=== PATIENT | female | born 1940 | race Caucasian/White ===

== ENCOUNTER 2018-08-07 15:13 | Emergency (ER) | payer MEDICARE ==
[~2018-08-07] VITALS: Ht 162.6 cm; Wt 93.6 kg
--- OUTSIDE RECORDS SUMMARY | 2018-08-07 15:16 | XMS REPORT | Clinical Summary ---
Author Author RAJEEV [employer] Organization [facility] [email or web address] [facility] Address Unknown Phone Unavailable Care Team Providers Care Filter Washer Name Role Phone Martell Mariee MD PCP Allergies Comments Active Allergy Reactions Severity Noted Date Hives Morphine Sulfate High shortness of breath Nitrofurantoin Macrocrystalline Medications End Date Status Medication Sig Dispensed Refills Start Date Active metOLazone (ZAROXOLYN) Take 2.5 mg 0 2.5 MG tabletIndications: by mouth as 7 Essential hypertension needed (Once with goal blood pressure weekly per less than 130/80 Dr. Santos) . Active levalbuterol (XOPENEX) Take 3 mLs by 0 1.25 mg/3 mL nebulizer nebulization 8 solution 3 (three) times daily as needed. 10/14/2018 Active levalbuterol (XOPENEX Inhale 2 1 Inhaler 0 HFA) 45 mcg/actuation puffs by 8 inhalerIndications: mouth via Bronchitis inhaler every 6 (six) hours as needed for Wheezing. Active nebulizers (NEBULIZER) Nebulizer and 1 each 0 MiscIndications: mask for 8 Bronchitis levalbuterol. Active losartan (COZAAR) 50 MG Take 50 mg by 0 tablet mouth nightly . 01/06/2019 Active rosuvastatin (CRESTOR) 10 Take 1 tablet 90 tablet 3 MG tablet (10 mg total) 8 by mouth nightly. Active warfarin (COUMADIN) 5 MG TAKE 1 TABLET 90 tablet 3 tabletIndications: BY MOUTH 8 Essential hypertension DAILY with goal blood pressure less than 130/80 Active levothyroxine (SYNTHROID, TAKE 1 TABLET 90 tablet 2 LEVOTHROID) 50 MCG tablet BY MOUTH 8 EVERY MORNING ON AN EMPTY STOMACH Active furosemide (LASIX) 40 MG TAKE 2 180 tablet 1 tablet TABLETS BY 8 MOUTH DAILY Active spironolactone TAKE 1 TABLET 90 tablet 1 (ALDACTONE) 25 MG BY MOUTH 8 tabletIndications: DAILY Essential hypertension with goal blood pressure less than 130/80 Active FUROSEMIDE ORAL Take 60 mg by 0 mouth every morning In addition to the 40 mg at night. . Active carvedilol (COREG) 25 MG TAKE 2 360 tablet 1 tablet TABLETS BY 8 MOUTH 2 TIMES DAILY WITH BREAKFAST AND DINNER. Active traZODone (DESYREL) 100 TAKE 1 TABLET 90 tablet 1 MG tablet BY MOUTH 8 NIGHTLY 08/19/2017 Discontinued carvedilol (COREG) 25 MG Take 2 360 tablet 3 tablet tablets (50 6 mg total) by mouth 2 (two) times daily with breakfast and dinner. 11/05/2017 Discontinued furosemide (LASIX) 40 MG Take 2 180 tablet 3 tablet tablets (80 7 mg total) by mouth daily. 11/05/2017 Discontinued levothyroxine (SYNTHROID, Take 1 tablet 90 tablet 3 LEVOTHROID) 50 MCG tablet (50 mcg 7 total) by mouth Every morning on an empty stomach. 01/27/2018 Discontinued warfarin (COUMADIN) 5 MG Take 1 tablet 90 tablet 3 tabletIndications: (5 mg total) 7 Essential hypertension by mouth with goal blood pressure daily. less than 130/80 01/27/2018 Discontinued traZODone (DESYREL) 100 Take 1 tablet 90 tablet 3 MG tabletIndications: (100 mg 7 Essential hypertension total) by with goal blood pressure mouth less than 130/80 nightly. 11/05/2017 Discontinued spironolactone Take 1 tablet 90 tablet 1 (ALDACTONE) 25 MG (25 mg total) 7 tabletIndications: by mouth Essential hypertension daily. with goal blood pressure less than 130/80 10/15/2017 Discontinued losartan (COZAAR) 100 MG Take 1 tablet 90 tablet 3 tabletIndications: (100 mg 7 Essential hypertension total) by with goal blood pressure mouth daily. less than 130/80 06/03/2018 budesonide-formoterol Inhale 2 2 Inhaler 12 (SYMBICORT) 80-4.5 puffs by 7 mcg/actuation mouth via inhalerIndications: inhaler 2 Essential hypertension (two) times with goal blood pressure daily. less than 130/80 01/27/2018 Discontinued carvedilol (COREG) 25 MG TAKE 2 360 tablet 2 tablet TABLETS BY 7 MOUTH 2 TIMES DAILY WITH BREAKFAST AND DINNER. 10/16/2017 cefuroxime (CEFTIN) 500 Take 1 tablet 0 MG tablet by mouth 2 8 (two) times daily. 10/19/2017 predniSONE (DELTASONE) 20 Take 2 10 tablet 0 MG tabletIndications: tablets (40 8 Bronchitis mg total) by mouth daily for 5 days. 04/02/2018 Discontinued levothyroxine (SYNTHROID, TAKE 1 TABLET 90 tablet 2 LEVOTHROID) 50 MCG tablet BY MOUTH 8 EVERY MORNING ON AN EMPTY STOMACH 04/02/2018 Discontinued furosemide (LASIX) 40 MG TAKE 2 180 tablet 2 tablet TABLETS BY 8 MOUTH DAILY 04/02/2018 Discontinued spironolactone TAKE 1 TABLET 90 tablet 2 (ALDACTONE) 25 MG BY MOUTH 8 tabletIndications: DAILY Essential hypertension with goal blood pressure less than 130/80 12/02/2017 cephalexin (KEFLEX) 500 Take 1 21 capsule 0 MG capsule capsule (500 8 mg total) by mouth 3 (three) times daily for 7 days. 12/05/2017 bacitracin 500 unit/gram Apply 120 g 0 ointment topically 2 8 (two) times daily for 10 days. 08/07/2018 Discontinued carvedilol (COREG) 25 MG TAKE 2 360 tablet 1 tablet TABLETS BY 8 MOUTH 2 TIMES DAILY WITH BREAKFAST AND DINNER. 08/07/2018 Discontinued traZODone (DESYREL) 100 TAKE 1 TABLET 90 tablet 1 MG tabletIndications: BY MOUTH 8 Essential hypertension NIGHTLY with goal blood pressure less than 130/80 06/19/2018 cefUROXime (CEFTIN) 250 Take 1 tablet 20 tablet 0 201 MG tablet (250 mg 8 total) by mouth 2 (two) times daily for 10 days. Active Problems Patient Care Coordination Note Aug 2014 new pleural effusion, more on the right, improved after 20 pound diuresis Kids are medical POA, some are here. 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 Home machine. Some self mgt. Daughter is General Surgeon in [place] Problem Noted Date Pure hypercholesterolemia 12/02/2017 Overview: LDL 109 Jun 2017, had been good prior to that. Agreed to start rosuvastatin December 2017 Bilateral edema of lower extremity 11/21/2016 Overview: Right heart failure, Furosemide. Dr. Santos sent to Dr. Ibarra, no procedure, did not look like would be help. She does not want lymphedema clinic. Anemia 06/13/2015 Overview: Low platelets 113, low lymphocytes, WBC 3.91, HB 10.4. Dr. Iniguez believes is following. Not low on iron. Bled during turbinate procedure on Lovenox Pancytopenia 02/15/2015 Overview: January 2015, prev anemia and mild thrombocytopenia, now with pancytopenia. Abnormal CXR 02/14/2015 Overview: Dr. Hewitt following right middle lobe opacity. Follow up pending. Venous insufficiency 12/22/2014 Overview: S/p bilateral venous sclerotherapy [place] Vein, see media. Some persistent retrograde flow Right heart failure due to pulmonary hypertension 11/15/2014 Overview: Normal EF and NST Dr. Santos 10/2014 EF 50-55%. Marked Pulm HTN< Severe tricuspid regurgitation. Proteinuria 10/27/2014 Overview: 296 Oct 2014 Pleural effusion, bilateral 08/09/2014 Overview: New moderate right pleural effusion with right retrocardiac opacity and no mediastinal shift. Slight enlargement of small left pleural effusion. No pulmonary edema or pneumothorax. Normal cardiomediastinal contours. 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 Multinodular goiter 08/09/2014 Overview: [place] Pulmonary hypertension, primary 07/27/2013 Overview: Apparent primary followed by Dr. Santos, Prev pulmonary emboli. History of pneumonia 2010 [facility] Following expectantly. Overall function is very good. Systolic murmur 07/27/2013 Overview: 2/6 YAZAN Bilateral renal cysts 09/30/2012 Essential hypertension with goal blood pressure less than 130/80 07/28/2012 Warfarin anticoagulation Overview: History of PEs, mangaged by [facility] S/P ablation of atrial fibrillation Overview: Still in a-fib 12/2012 Dr. Jesus, no chronic A-fib, Carvedilol Dr.. Santos, Pacemaker. Pacemaker Overview: Dr. Jesus Resolved Problems Problem Noted Date Resolved Date Bronchitis 02/21/2018 06/09/2018 Overview: January 2018 ([place]). Encounters Care Team Description Date Type Specialty Martell Mariee MD 08/07/2018 Refill Internal Medicine Martell Mariee MD 07/30/2018 Orders Only Internal Medicine Martell Mariee MD 07/01/2018 Orders Only Internal Martell Edwards MD Coagulation Disorder 06/24/2018 Telephone Internal Martell Edwards MD 06/24/2018 Orders Only Internal Martell Edwards MD CC (OV notes and labs sent ) 06/20/2018 Telephone Internal Martell Edwards MD 06/17/2018 Orders Only Internal Martell Edwards MD Rx 06/10/2018 Telephone Internal Medicine Martell Mariee MD 06/10/2018 Orders Only Internal Martell Edwards MD Pulmonary hypertension, primary (HCC) (Primary Dx); Need for influenza vaccination; Annual physical exam; Pure hypercholesterolemia; Right heart failure due to pulmonary hypertension (HCC); S/P ablation of atrial fibrillation; Warfarin anticoagulation; Essential hypertension with goal blood pressure less than 130/80; Multinodular goiter; Encounter for long-term (current) use of medications; Bilateral edema of lower extremity 06/09/2018 Office Visit Internal Martell Edwards MD 06/03/2018 Orders Only Internal Martell Edwards MD INR 06/03/2018 Telephone Internal Martell Edwards MD 05/27/2018 Orders Only Martell Rouse MD Coagulation Disorder 05/27/2018 Telephone Internal Martell Edwards MD 05/20/2018 Orders Only Internal Martell Edwards MD Coagulation Disorder 05/20/2018 Telephone Internal Medicine Deep Ibarra MD Leg mass, left 05/19/2018 Hospital Radiology Encounter Deep Ibarra MD Leg mass, left (Primary Dx) 05/16/2018 Outside Orders Martell Mariee MD Coagulation Disorder 05/06/2018 Telephone Internal Martell Edwards MD 05/06/2018 Orders Only Internal Medicine Martell Mariee MD 04/22/2018 Orders Only Internal Medicine Martell Mariee MD 04/15/2018 Orders Only Internal Medicine Martell Mariee MD 04/09/2018 Orders Only Internal Medicine Martell Mariee MD Essential hypertension with goal blood pressure less than 130/80 04/02/2018 Refill Internal Medicine Martell Mariee MD 04/01/2018 Orders Only Internal Medicine Martell Mariee MD Coagulation Disorder 03/25/2018 Telephone Internal Medicine Martell Mariee MD 03/25/2018 Orders Only Internal Medicine Martell Mariee MD 03/18/2018 Orders Only Internal Medicine Martell Mariee MD 03/11/2018 Orders Only Internal Medicine Martell Mariee MD Coagulation Disorder 03/11/2018 Telephone Internal Martell Edwards MD Coagulation Disorder (OUT OF range INR) 03/04/2018 Telephone Internal Martell Edwards MD 02/25/2018 Orders Only Internal Medicine Martell Mraiee MD Right heart failure due to pulmonary hypertension (HCC) (Primary Dx); Warfarin anticoagulation; Pure hypercholesterolemia; S/P ablation of atrial fibrillation; Pulmonary hypertension, primary (HCC); Venous insufficiency; Bronchitis 02/21/2018 Office Visit Internal Medicine Martell Mariee MD Results (INR results ) 02/17/2018 Telephone Internal Martell Edwards MD 02/17/2018 Orders Only Internal Martell Edwards MD 02/14/2018 Orders Only Internal Martell Edwards MD Cough; URI 02/13/2018 Telephone Internal Martell Edwards MD 02/11/2018 Orders Only Internal Medicine Martell Mariee MD Coagulation Disorder (INR) 02/11/2018 Telephone Internal Medicine Martell Mariee MD 02/04/2018 Orders Only Internal Martell Edwards MD 01/28/2018 Orders Only Internal Medicine Martell Mariee MD Essential hypertension with goal blood pressure less than 130/80 01/27/2018 Refill Internal Martell Edwards MD 01/14/2018 Orders Only Internal Medicine Martell Mariee MD 01/07/2018 Orders Only Internal Medicine Martell Mariee MD Coagulation Disorder 12/31/2017 Telephone Internal Medicine Martell Mariee MD 12/31/2017 Orders Only Internal Medicine Martell Mariee MD 12/24/2017 Orders Only Internal Medicine Martell Mariee MD records request (cardio work up 2016) 12/20/2017 Telephone Internal Medicine Martell Mariee MD 12/17/2017 Orders Only Internal Medicine Martell Mariee MD 12/10/2017 Orders Only Internal Medicine Martell Mariee MD Coagulation Disorder 12/03/2017 Telephone Internal Medicine Martell Mariee MD 12/03/2017 Orders Only Internal Medicine Martell Mariee MD Pulmonary hypertension, primary (HCC) (Primary Dx); S/P ablation of atrial fibrillation; Pure hypercholesterolemia; Warfarin anticoagulation; Right heart failure due to pulmonary hypertension (HCC); Venous insufficiency; Other iron deficiency anemia 12/02/2017 Office Visit Internal Medicine Danae Cheek MD [id number] (DTP) vaccination (Primary Dx); Laceration of left lower leg, initial encounter; History of CHF (congestive heart failure) 11/25/2017 Emergency Emergency Medicine Martell Mariee MD Concern about patient (Concerned about patient) 11/25/2017 Telephone Internal Medicine Martell Mariee MD 11/19/2017 Orders Only Internal Medicine Martell Mariee MD 11/12/2017 Orders Only Internal Medicine Martell Mariee MD Essential hypertension with goal blood pressure less than 130/80 11/05/2017 Refill Internal Medicine Martell Mariee MD 10/29/2017 Orders Only Internal Medicine Martell Mariee MD 10/22/2017 Orders Only Internal Medicine Martell Mariee MD 10/15/2017 Orders Only Internal Medicine Alice Ruiz MD Bronchitis (Primary Dx) 10/14/2017 Office Visit Internal Medicine Martell Mariee MD Rx (Rx ); NEW NEBULIZER MACHINE 10/14/2017 Telephone Internal Medicine Martell Mariee MD 10/08/2017 Orders Only Internal Medicine Martell Mariee MD INR 10/01/2017 Telephone Internal Medicine Martell Mariee MD 10/01/2017 Orders Only Internal Medicine Martell Mariee MD 09/24/2017 Orders Only Internal Medicine Martell Mariee MD 09/10/2017 Orders Only Internal Medicine Martell Mariee MD 09/04/2017 Orders Only Internal Medicine Martell Mariee MD Coagulation Disorder (INR out of range 1.9) 09/03/2017 Telephone Internal Martell Edwards MD 09/03/2017 Orders Only Internal Medicine Martell Mariee MD 08/20/2017 Orders Only Internal Martell Edwards MD 08/19/2017 Refill Internal Martell Edwards MD 08/13/2017 Orders Only Internal Medicine Martell Mariee MD 08/06/2017 Orders Only Internal Medicine after 08/06/2017 Immunizations Name Dates Previously Given Next Due Influenza High Dose 06/09/2018, 06/03/2017 Preservative Free IM Influenza, High Dose 06/02/2014 Seasonal Pneumococcal Conjugate 06/03/2017 (Prevnar) 13-Valent Pneumococcal 09/02/2011 Polysaccharide (Pneumovax) Tdap 11/25/2017 Family History Relation Name Status Comments Brother COPD (Age 70) Daughter Alive Healthy Father Stroke (Age 65) Mother Stroke (Age 57) Son Alive Healthy Social History Date Tobacco Use Types Packs/Day Years Used Never Smoker Smokeless Tobacco: Never Used Alcohol Use Drinks/Week oz/Week Comments No Sex Assigned at Date Recorded Not on file Industry Job Start Date Occupation Not on file Not on file Not on file Travel End Travel History Travel Start No recent travel history available. Last Filed Vital Signs Time Taken Vital Sign Reading 06/09/2018 10:40 AM CDT Blood Pressure 106/58 06/09/2018 10:40 AM CDT Pulse 78 06/09/2018 10:40 AM CDT Temperature 36.5 C (97.7 F) 11/25/2017 12:55 PM CDT Respiratory Rate 20 06/09/2018 10:40 AM CDT Oxygen Saturation 99% - Inhaled Oxygen - Concentration 06/09/2018 10:40 AM CDT Weight 89.9 kg (198 lb 4.8 oz) 06/09/2018 10:40 AM CDT Height 162.6 cm (5' 4") 06/09/2018 10:40 AM CDT Body Mass Index 34.04 Plan of Treatment Care Team Description Date Type Specialty Martell Mariee MD [address] [id number] 12/15/2018 Office Visit Internal Medicine Health Maintenance Due Date Last Done Comments INFLUENZA VACCINE Completed 06/09/2018, 06/03/2017 Procedures Comments Procedure Name Priority Date/Time Associated Diagnosis PROTHROMBIN TIME/INR Routine 07/29/2018 PROTHROMBIN TIME/INR Routine 07/01/2018 PROTHROMBIN TIME/INR Routine 06/24/2018 PROTHROMBIN TIME/INR Routine 06/17/2018 PROTHROMBIN TIME/INR Routine 06/10/2018 MICROSCOPIC EXAMINATION Routine 06/09/2018 11:26 AM CDT UA/M W/RFLX CULTURE, ROUT AP Routine 06/09/2018 Pulmonary hypertension, 11:26 AM CDT primary (HCC) Pure hypercholesterolemia Multinodular goiter Encounter for long-term (current) use of medications VITAMIN D, 25-HYDROXY Routine 06/09/2018 Pulmonary hypertension, 11:26 AM CDT primary (HCC) Pure hypercholesterolemia Multinodular goiter Encounter for long-term (current) use of medications LIPID PANEL Routine 06/09/2018 Pulmonary hypertension, 11:26 AM CDT primary (HCC) Pure hypercholesterolemia Multinodular goiter Encounter for long-term (current) use of medications HGB A1C WITH EAG ESTIMA Routine 06/09/2018 Pulmonary hypertension, 11:26 AM CDT primary (HCC) Pure hypercholesterolemia Multinodular goiter Encounter for long-term (current) use of medications CBC W/PLT COUNT & AUTO Routine 06/09/2018 Pulmonary hypertension, DIFFERENTIAL 11:26 AM CDT primary (HCC) Pure hypercholesterolemia Multinodular goiter Encounter for long-term (current) use of medications COMPREHENSIVE METABOLIC Routine 06/09/2018 Pulmonary hypertension, PANEL 11:26 AM CDT primary (HCC) Pure hypercholesterolemia Multinodular goiter Encounter for long-term (current) use of medications PROTHROMBIN TIME/INR Routine 06/03/2018 PROTHROMBIN TIME/INR Routine 05/27/2018 PROTHROMBIN TIME/INR Routine 05/20/2018 POCT-CREATININE Routine 05/19/2018 2:26 PM CDT PROTHROMBIN TIME/INR Routine 05/06/2018 PROTHROMBIN TIME/INR Routine 04/22/2018 PROTHROMBIN TIME/INR Routine 04/15/2018 PROTHROMBIN TIME/INR Routine 04/09/2018 PROTHROMBIN TIME/INR Routine 04/01/2018 PROTHROMBIN TIME/INR Routine 03/25/2018 PROTHROMBIN TIME/INR Routine 03/18/2018 MM DIGITAL MAMMO SCREEN Routine 03/18/2018 BILATERAL MM DIGITAL MAMMO SCREEN Routine 03/17/2018 BILATERAL MM DIGITAL MAMMO SCREEN Routine 03/17/2018 BILATERAL PROTHROMBIN TIME/INR Routine 03/11/2018 PROTHROMBIN TIME/INR Routine 02/25/2018 PROTHROMBIN TIME/INR Routine 02/17/2018 PROTHROMBIN TIME/INR Routine 02/14/2018 PROTHROMBIN TIME/INR Routine 02/11/2018 PROTHROMBIN TIME/INR Routine 02/04/2018 PROTHROMBIN TIME/INR Routine 01/28/2018 PROTHROMBIN TIME/INR Routine 01/14/2018 PROTHROMBIN TIME/INR Routine 01/07/2018 PROTHROMBIN TIME/INR Routine 12/31/2017 PROTHROMBIN TIME/INR Routine 12/24/2017 PROTHROMBIN TIME/INR Routine 12/17/2017 CHG PROTHROMBIN TIME Routine 12/10/2017 PROTHROMBIN TIME/INR Routine 12/03/2017 MICROSCOPIC EXAMINATION Routine 12/02/2017 11:15 AM CDT UA/M W/RFLX CULTURE, ROUT AP Routine 12/02/2017 Pure hypercholesterolemia 11:15 AM CDT Warfarin anticoagulation Right heart failure due to pulmonary hypertension (HCC) Other iron deficiency anemia T4, FREE Routine 12/02/2017 Pure hypercholesterolemia 11:15 AM CDT Warfarin anticoagulation Right heart failure due to pulmonary hypertension (HCC) Other iron deficiency anemia TSH Routine 12/02/2017 Pure hypercholesterolemia 11:15 AM CDT Warfarin anticoagulation Right heart failure due to pulmonary hypertension (HCC) Other iron deficiency anemia IRON, TIBC, % SAT. Routine 12/02/2017 Pure hypercholesterolemia (WITHOUT FERRITIN) 11:15 AM CDT Warfarin anticoagulation Right heart failure due to pulmonary hypertension (HCC) Other iron deficiency anemia FERRITIN Routine 12/02/2017 Pure hypercholesterolemia 11:15 AM CDT Warfarin anticoagulation Right heart failure due to pulmonary hypertension (HCC) Other iron deficiency anemia LIPID PANEL Routine 12/02/2017 Pure hypercholesterolemia 11:15 AM CDT Warfarin anticoagulation Right heart failure due to pulmonary hypertension (HCC) Other iron deficiency anemia HGB A1C WITH EAG ESTIMA Routine 12/02/2017 Pure hypercholesterolemia 11:15 AM CDT Warfarin anticoagulation Right heart failure due to pulmonary hypertension (HCC) Other iron deficiency anemia COMPREHENSIVE METABOLIC Routine 12/02/2017 Pure hypercholesterolemia PANEL 11:15 AM CDT Warfarin anticoagulation Right heart failure due to pulmonary hypertension (HCC) Other iron deficiency anemia CBC W/PLT COUNT & AUTO Routine 12/02/2017 Pure hypercholesterolemia DIFFERENTIAL 11:15 AM CDT Warfarin anticoagulation Right heart failure due to pulmonary hypertension (HCC) Other iron deficiency anemia DC LAYR CLOS WND Routine 11/30/2017 TRUNK,ARM,LEG 2.6-7.5 CM 7:23 AM CDT PROTHROMBIN TIME/INR Routine 11/19/2017 PROTHROMBIN TIME/INR Routine 11/12/2017 PROTHROMBIN TIME/INR Routine 10/29/2017 PROTHROMBIN TIME/INR Routine 10/22/2017 PROTHROMBIN TIME/INR Routine 10/15/2017 PROTHROMBIN TIME/INR Routine 10/08/2017 PROTHROMBIN TIME/INR Routine 10/01/2017 PROTHROMBIN TIME/INR Routine 10/01/2017 PROTHROMBIN TIME/INR Routine 09/24/2017 PROTHROMBIN TIME/INR Routine 09/10/2017 PROTHROMBIN TIME/INR Routine 09/04/2017 PROTHROMBIN TIME/INR Routine 09/03/2017 PROTHROMBIN TIME/INR Routine 08/20/2017 PROTHROMBIN TIME/INR Routine 08/13/2017 PROTHROMBIN TIME/INR Routine 08/13/2017 PROTHROMBIN TIME/INR Routine 08/06/2017 after 08/06/2017 Results * Prothrombin time/INR (07/29/2018) Only the most recent of 44 results within the time period is included. Specimen Blood Narrative Performed At Performing Organization Address City/[facility]/Zipcode Phone Number OTHER (EXTERNAL) * MICROSCOPIC EXAMINATION (06/09/2018 11:26 AM CDT) Only the most recent of 2 results within the time period is included. WBC None seen 0 - 5 /hpf [facility] RBC 0-2 0 - 2 /hpf [facility] Epithelial Cells (non 0-10 0 - 10 /hpf [facility] renal) Casts Present (A) None seen /lpf [facility] Cast Type Hyaline casts N/A [facility] Mucus Threads Present Not Estab. [facility] Bacteria None seen None seen/ [facility] Narrative Performed At Performed at:[facility] [address], [id number] Toll Mechanic: Luiz Bethea MD, Phone:[phone] Performing Organization Address City/State/Zipcode Phone Number [facility] * UA/M W/RFLX CULTURE, ROUT (06/09/2018 11:26 AM CDT) Only the most recent of 2 results within the time period is included. Specific [place], UA 1.017 1.005 - 1.03 [facility] pH, UA 6.5 5.0 - 7.5 [facility] Color, UA Yellow Yellow [facility] Appearance Clear Clear [facility] WBC Esterase Negative Negative [facility] Protein, UA Negative Negative/T [facility] Glucose, Urine Negative Negative [facility] Ketones, UA Negative Negative [facility] Blood, UA Negative Negative [facility] Bilirubin, UA Negative Negative [facility] 1 Urobilinogen,Semi-Qn 0.2 0.2 - 1.0 mg/dL [facility] Nitrite, UA Negative Negative [facility] Microscopic Examination CommentComment: Microscopic [facility] follows if indicated. Microscopic Examination See below:Comment: Microscopic [facility] was indicated and was performed. Urinalysis Reflex CommentComment: This specimen [facility] will not reflex to a Urine Culture. Specimen Urine - Urine, Clean Catch Narrative Performed At Performed at: - [facility] [address], [id number] Toll Mechanic: Luiz Bethea MD, Phone:[phone] Performing Organization Address [facility] Phone Number [facility] * HGB A1C WITH EAG ESTIMA ([facility] Only) (06/09/2018 11:26 AM CDT) Only the most recent of 2 results within the time period is included. Hemoglobin A1c 5.2 4.8 - 5.6 % [facility] Comment: Prediabetes: 5.7 - 6.4 Diabetes: >6.4 Glycemic control for adults with diabetes: <7.0 Hemoglobin A1c 103 mg/dL [facility] Narrative Performed At Performed at: - [facility] [address], [id number] Toll Mechanic: Luiz Bethea MD, Phone:[phone] Performing Organization Address [facility] Phone Number [facility] * Vitamin D, 25-Hydroxy (06/09/2018 11:26 AM CDT) Vitamin D, 25-Hydroxy 61.5 30.0 - 100.0 ng/mL [facility] Comment: Vitamin D deficiency has been defined by the [place] of Medicine and an Endocrine Society practice guideline as a level of serum 25-OH vitamin D less than 20 ng/mL (1,2). The Endocrine Society went on to further define vitamin D insufficiency as a level between 21 and 29 ng/mL (2). 1. IOM ([place] of Medicine). 2010. Dietary reference intakes for calcium and D. [place]: The National Academies Press. 2. Carter MF, Jb NC, Mike LEDESMA, et al. Evaluation, treatment, and prevention of vitamin D deficiency: an Endocrine Society clinical practice guideline. JCEM. 2010; 96(7):1911-30. Specimen Blood Narrative Performed At Performed at:01 - [facility] [address], [id number] Toll Mechanic: Luiz Bethea MD, Phone:[phone] Performing Organization Address [facility] Phone Number [facility] [facility] * CBC W/PLT COUNT & AUTO DIFFERENTIAL (06/09/2018 11:26 AM CDT) Only the most recent of 2 results within the time period is included. WBC 4.0 3.4 - 10.8 x10E3/uL [facility] RBC 3.72 (L) 3.77 - 5.28 x10E6/uL [facility] Hemoglobin 11.3 11.1 - 15.9 g/dL [facility] 1 Hematocrit 34.7 34.0 - 46.6 % [facility] 1 MCV 93 79 - 97 fL [facility] 1 MCH 30.4 26.6 - 33.0 pg [facility] 1 MCHC 32.6 31.5 - 35.7 g/dL [facility] 1 RDW 14.1 12.3 - 15.4 % [facility] 1 Platelets 131 (L) 150 - 379 x10E3/uL [facility] % Neutros 69 Not Estab. % [facility] % Lymphs 20 Not Estab. % [facility] % Monos 8 Not Estab. % [facility] % Eos 2 Not Estab. % [facility] % Baso 1 Not Estab. % [facility] # Neutros 2.8 1.4 - 7.0 x10E3/uL [facility] # Lymphs 0.8 0.7 - 3.1 x10E3/uL [facility] # Monos 0.3 0.1 - 0.9 x10E3/uL [facility] # Eos 0.1 0.0 - 0.4 x10E3/uL [facility] 1 Baso (Absolute) 0.0 0.0 - 0.2 x10E3/uL [facility] % Immature Grans 0 Not Estab. % [facility] # Immature Grans 0.0 0.0 - 0.1 x10E3/uL [facility] 1 Specimen Blood Narrative Performed At Performed at:01 - [facility] [address], [id number] Toll Mechanic: Luiz Bethea MD, Phone:[phone] Performing Organization Address City/[facility]/Zipcode Phone Number [facility] * Lipid panel (06/09/2018 11:26 AM CDT) Only the most recent of 2 results within the time period is included. Cholesterol, Total 126 100 - 199 mg/dL [facility] Triglycerides 89 0 - 149 mg/dL [facility] HDL Cholesterol 45 >39 mg/dL [facility] Comment: Effective June 23, 2018, HDL Cholesterol reference interval will be changing to: MaleFe male 40 - [id number] 50 - [id number] VLDL Cholesterol Jesus 18 5 - 40 mg/dL [facility] 1 LDL Cholesterol Calc 63 0 - 99 mg/dL [facility] LDL/HDL Ratio 1.4 0.0 - 3.2 ratio [facility] Comment: LDL/HDL Ratio Me nWomen 1/2 Avg.Risk1.01.5 Avg.Risk3.6 3.2 2X Avg.Risk6.25.0 3X Avg.Risk8.06.1 Specimen Blood Narrative Performed At Performed at: - [facility] [address], [id number] Toll Mechanic: Luiz Bethea MD, Phone:[phone] Performing Organization Address City/State/[facility] Phone Number [facility] * Comprehensive metabolic panel (06/09/2018 11:26 AM CDT) Only the most recent of 2 results within the time period is included. Glucose, Serum 100 (H) 65 - 99 mg/dL [facility] BUN 53 (H) 8 - 27 mg/dL [facility] Creatinine, Serum 1.54 (H) 0.57 - 1.00 mg/dL [facility] 1 eGFR If NonAfricn Am 33 (L) >59 mL/min/1.73 [facility] 1 eGFR If Africn Am 38 (L) >59 mL/min/1.73 [facility] 1 BUN/Creatinine Ratio 34 (H) 12 - 28 [facility] 1 Sodium, Serum 140 134 - 144 mmol/L [facility] 1 Potassium, Serum 4.0 3.5 - 5.2 mmol/L [facility] 1 Chloride, Serum 102 96 - 106 mmol/L [facility] 1 Carbon Dioxide, Total 25 20 - 29 mmol/L [facility] 1 Calcium, Serum 8.2 (L) 8.7 - 10.3 mg/dL [facility] Protein, Total, Serum 4.9 (L) 6.0 - 8.5 g/dL [facility] 1 Albumin, Serum 3.6 3.5 - 4.8 g/dL [facility] 1 Globulin, Total 1.3 (L) 1.5 - 4.5 g/dL [facility] A/G Ratio 2.8 (H) 1.2 - 2.2 [facility] 1 Bilirubin, Total 0.3 0.0 - 1.2 mg/dL [facility] 1 Alkaline Phosphatase, S 65 39 - 117 IU/L [facility] 1 AST (SGOT) 29 0 - 40 IU/L [facility] 1 ALT (SGPT) 17 0 - 32 IU/L [facility] 1 Specimen Blood Narrative Performed At Performed at:01 - [facility] [address] [place], [place] [id number] Toll Mechanic: Luiz Bethea MD, Phone:[phone] Performing Organization Address City/[facility] Phone Number [facility] * POC-Creatinine (05/19/2018 2:26 PM CDT) POC-Creatinine 1.9 (H)Comment: TESTED AT 0.6 - 1.3 mg/dL [facility] [address] [place] [address] POC-EGFR 26 mL/min/1.73M2 [facility] Specimen Blood Performing Organization Address City/[facility] Phone Number [address] [address] MEDICAL CENTER * MM digital mammo screen bilateral (03/18/2018) Only the most recent of 3 results within the time period is included. Narrative Performed At * CHG PROTHROMBIN TIME (12/10/2017) Narrative Performed At Performing Organization Address City/[facility] Phone Number MISCELLANEOUS AP NON-INTERFACED REFERENCE LAB * Iron, TIBC, % sat. (without ferritin) (12/02/2017 11:15 AM CDT) Iron Bind.Cap.(TIBC) 314 250 - 450 ug/dL [facility] UIBC 244 118 - 369 ug/dL [facility] Iron, Serum 70 27 - 139 ug/dL [facility] Iron % Saturation 22 15 - 55 % [facility] 1 Specimen Blood Narrative Performed At Performed at:[address] [place], [place] [id number] Toll Mechanic: Luiz Bethea MD, Phone:[phone] Performing Organization Address [facility] Phone Number [facility] * TSH (12/02/2017 11:15 AM CDT) TSH 2.360 0.450 - 4.50 uIU/mL [facility] 1 Specimen Blood Narrative Performed At Performed at:[address] [place], [place] [id number] Toll Mechanic: Luiz Bethea MD, Phone:[phone] Performing Organization Address [facility] Phone Number [facility] * T4, free (12/02/2017 11:15 AM CDT) T4,Free(Direct) 1.37 0.82 - 1.77 ng/dL [facility] 1 Thyroxine (T4) 8.7 4.5 - 12.0 ug/dL [facility] 1 Specimen Blood Narrative Performed At Performed at:[address] [place], [place] [id number] Toll Mechanic: Luiz Bethea MD, Phone:[phone] Performing Organization Address [facility] Phone Number [facility] * Ferritin (12/02/2017 11:15 AM CDT) Ferritin, Serum 88 15 - 150 ng/mL [facility] 1 Specimen Blood Narrative Performed At Performed at:[address] [place], [place] [id number] Toll Mechanic: Luiz Bethea MD, Phone:[phone] Performing Organization Address [facility] Phone Number [facility] 1 * LACERATION REPAIR (11/30/2017 7:23 AM CDT) Narrative Performed At Danae Cheek MD 11/30/20177:23 AM Lac Repair Date/Time: 11/25/2017 1:30 PM Performed by: DANAE CHEEK Authorized by: DANAE CHEEK Consent: Verbal consent obtained. Risks and benefits: risks, benefits and alternatives were discussed Consent given by: patient Patient understanding: patient states understanding of the procedure being performed Patient consent: the patient's understanding of the procedure matches consent given Patient identity confirmed: verbally with patient and arm band Time out: Immediately prior to procedure a "time out" was called to verify the correct patient, procedure, equipment, account support rep and site/side marked as required. Body area: lower extremity Location details: left lower leg Laceration length: 4 cm Tendon involvement: none Nerve involvement: none Vascular damage: no Anesthesia: local infiltration Anesthesia: Local Anesthetic: lidocaine 1% without epinephrine Anesthetic total: 5 mL Sedation: Patient sedated: no Preparation: Patient was prepped and draped in the usual sterile fashion. Irrigation solution: saline Irrigation method: syringe Amount of cleaning: extensive Debridement: none Degree of undermining: none Skin closure: 4-0 Prolene Number of sutures: 6 Technique: simple Approximation: close Approximation difficulty: simple Dressinx4 sterile gauze, antibiotic ointment, gauze roll and pressure dressing Patient tolerance: Patient tolerated the procedure well with no immediate complications Immediate Post-Procedure Note Date/Time: 11/25/2017 1:15 PM Assistants to the procedure: None Pre-procedure diagnosis: laceration LLE Post-procedure diagnosis: s/p repair Procedures Performed: Lac Repair Specimens removed: None Estimated blood loss (mL): None Complications: None Type of anesthesia: None Grafts or Implants: None after 08/06/2017 Insurance Payer Benefit Subscriber ID Type Phone Address Plan / Group MEDICARE MEDICARE A xxxxxxxxxxx Medicare B MCR SUPPLEMENT/INDIVIDUAL AARP/UNITE xxxxxxxxxxx [facility] D HEALTHCARE Advance Directives For more information, please contact: [facility] [address] [place] [address] Date Inactivated Comments Code Status Date Activated 11/30/2014 3:21 PM Full Code 11/22/2014 5:46 PM This code status was determined by: Patient
--- OUTSIDE RECORDS SUMMARY | 2018-08-07 15:16 | XMS REPORT ---
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 Allergies, Adverse Reactions, Alerts This patient has no known allergies or adverse reactions. Medications This patient has no known medications. Results Test Description Test Time Test Comments Text Results Atomic Results Result Comments POCT-CREATININE 2018-05-19 14:44:00 POC-CREATININE (BEAKER) (test ocwy=8213) 1.9 mg/dL 0.6-1.3 TESTED AT [facility] [address] [facility] [address] POC-EGFR (BEAKER) (test ydcp=8742) 26 mL/min/1.73M2 BASIC METABOLIC [id number] 13:09:00* Test Item Value Reference Range Comments SODIUM (BEAKER) (test zdzy=620) 135 meq/L 136-145 POTASSIUM (BEAKER) (test zhui=900) 5.1 meq/L 3.5-5.1 CHLORIDE (BEAKER) (test vpta=647) 105 meq/L 98-107 CO2 (BEAKER) (test ljta=254) 23 meq/L 22-29 BLOOD UREA NITROGEN (BEAKER) (test jhfb=765) 76 mg/dL 7-21 CREATININE (BEAKER) (test cmxt=085) 1.84 mg/dL 0.57-1.25 GLUCOSE RANDOM (BEAKER) (test fdxy=170) 85 mg/dL 70-105 CALCIUM (BEAKER) (test mgfx=993) 8.5 mg/dL 8.4-10.2 EGFR (BEAKER) (test nvja=0641) 27 mL/min/1.73 sq m ESTIMATED GFR IS NOT ACCURATE CREATININE CLEARANCE IN PREDICTING GLOMERULAR FILTRATION RATE. ESTIMATED GFR IS NOT APPLICABLE FOR DIALYSIS PATIENTS. CBC W/PLT COUNT & AUTO [id number] 12:07:00* Test Item Value Reference Range Comments WHITE BLOOD CELL COUNT (BEAKER) (test aekv=723) 5.3 K/ L 4.0-10.0 RED BLOOD CELL COUNT (BEAKER) (test vrtl=048) 3.46 M/ L 4.00-5.00 HEMOGLOBIN (BEAKER) (test zkai=115) 11.4 GM/DL 12.0-15.0 HEMATOCRIT (BEAKER) (test kztk=623) 33.9 % 36.0-45.0 MEAN CORPUSCULAR VOLUME (BEAKER) (test bvto=927) 98.0 fL 82.0-99.0 MEAN CORPUSCULAR HEMOGLOBIN (BEAKER) (test thmj=175) 32.8 pg 27.0-33.0 MEAN CORPUSCULAR HEMOGLOBIN CONC (BEAKER) (test ublv=447) 33.5 GM/DL 32.0-36.0 RED CELL DISTRIBUTION WIDTH (BEAKER) (test uciq=537) 12.9 % 10.3-14.2 PLATELET COUNT (BEAKER) (test tcyh=519) 121 K/CU MM 150-430 MEAN PLATELET VOLUME (BEAKER) (test dvxy=336) 7.2 fL 6.5-10.5 NUCLEATED RED BLOOD CELLS (BEAKER) (test hmtl=876) 0 /100 WBC 0-0 NEUTROPHILS RELATIVE PERCENT (BEAKER) (test zgie=052) 70 % LYMPHOCYTES RELATIVE PERCENT (BEAKER) (test wfts=190) 18 % MONOCYTES RELATIVE PERCENT (BEAKER) (test jezc=850) 9 % EOSINOPHILS RELATIVE PERCENT (BEAKER) (test zoqw=881) 3 % BASOPHILS RELATIVE PERCENT (BEAKER) (test fpfl=112) 1 % NEUTROPHILS ABSOLUTE COUNT (BEAKER) (test dlbz=663) 3.71 K/ L 1.80-8.00 LYMPHOCYTES ABSOLUTE COUNT (BEAKER) (test jgyz=725) 0.93 K/ L 1.48-4.50 MONOCYTES ABSOLUTE COUNT (BEAKER) (test edmn=393) 0.47 K/ L 0.00-1.30 EOSINOPHILS ABSOLUTE COUNT (BEAKER) (test nggr=974) 0.17 K/ L 0.00-0.50 BASOPHILS ABSOLUTE COUNT (BEAKER) (test bckc=496) 0.04 K/ L 0.00-0.20 0.00CBC W/PLT COUNT & AUTO [id number] 14:09:00* Test Item Value Reference Range Comments WHITE BLOOD CELL COUNT (BEAKER) (test xbqr=590) 5.2 K/ L 4.0-10.0 RED BLOOD CELL COUNT (BEAKER) (test lcnc=755) 3.47 M/ L 4.00-5.00 HEMOGLOBIN (BEAKER) (test dpue=160) 11.3 GM/DL 12.0-15.0 HEMATOCRIT (BEAKER) (test smwd=394) 34.6 % 36.0-45.0 MEAN CORPUSCULAR VOLUME (BEAKER) (test fhft=900) 99.7 fL 82.0-99.0 MEAN CORPUSCULAR HEMOGLOBIN (BEAKER) (test ycva=467) 32.6 pg 27.0-33.0 MEAN CORPUSCULAR HEMOGLOBIN CONC (BEAKER) (test dyil=156) 32.7 GM/DL 32.0-36.0 RED CELL DISTRIBUTION WIDTH (BEAKER) (test oayb=760) 13.1 % 10.3-14.2 PLATELET COUNT (BEAKER) (test xbrn=743) 114 K/CU MM 150-430 MEAN PLATELET VOLUME (BEAKER) (test ilql=603) 7.4 fL 6.5-10.5 NUCLEATED RED BLOOD CELLS (BEAKER) (test xkqp=124) 0 /100 WBC 0-0 NEUTROPHILS RELATIVE PERCENT (BEAKER) (test ltbj=070) 69 % LYMPHOCYTES RELATIVE PERCENT (BEAKER) (test yxvt=196) 18 % MONOCYTES RELATIVE PERCENT (BEAKER) (test kmrc=306) 9 % EOSINOPHILS RELATIVE PERCENT (BEAKER) (test zibn=754) 3 % BASOPHILS RELATIVE PERCENT (BEAKER) (test lxqm=493) 1 % NEUTROPHILS ABSOLUTE COUNT (BEAKER) (test mejo=553) 3.62 K/ L 1.80-8.00 LYMPHOCYTES ABSOLUTE COUNT (BEAKER) (test dlwk=511) 0.92 K/ L 1.48-4.50 MONOCYTES ABSOLUTE COUNT (BEAKER) (test squv=787) 0.47 K/ L 0.00-1.30 EOSINOPHILS ABSOLUTE COUNT (BEAKER) (test ylwt=171) 0.18 K/ L 0.00-0.50 BASOPHILS ABSOLUTE COUNT (BEAKER) (test hfdx=818) 0.04 K/ L 0.00-0.20 0.00BASIC METABOLIC [id number] 13:56:00* Test Item Value Reference Range Comments SODIUM (BEAKER) (test qokk=032) 136 meq/L 136-145 POTASSIUM (BEAKER) (test tfvn=594) 4.8 meq/L 3.5-5.1 CHLORIDE (BEAKER) (test mllw=954) 104 meq/L 98-107 CO2 (BEAKER) (test upzd=049) 24 meq/L 22-29 BLOOD UREA NITROGEN (BEAKER) (test cxpu=584) 55 mg/dL 7-21 CREATININE (BEAKER) (test rnjp=395) 1.67 mg/dL 0.57-1.25 GLUCOSE RANDOM (BEAKER) (test nqtl=498) 100 mg/dL 70-105 CALCIUM (BEAKER) (test ppcy=105) 8.3 mg/dL 8.4-10.2 EGFR (BEAKER) (test uvxj=2921) 30 mL/min/1.73 sq m ESTIMATED GFR IS NOT ACCURATE CREATININE CLEARANCE IN PREDICTING GLOMERULAR FILTRATION RATE. ESTIMATED GFR IS NOT APPLICABLE FOR DIALYSIS PATIENTS.
[2018-08-07] MEDS ORDERED: ALBUTEROL/IPRATROPIUM 3 ML NEB NEB STA (16:02)
[2018-08-07] MEDS ORDERED: METHYLPREDNISOLONE ACETATE 40 MG/ML VIAL IM STA (16:02)
--- NOTE | 2018-08-07 16:46 | Diagnostic Imaging Report ---
EXAMINATION: CXR 2 VIEW - HOPD INDICATION: Cough and congestion COMPARISON: None FINDINGS: PA and lateral views TUBES and LINES: 2-lead pacemaker device overlying the left upper chest with leads overlying the right atrium and right ventricle. LUNGS: Lungs are well inflated. Patchy airspace opacities in the left lower lobe. Bandlike opacity in the right medial lower lobe with mild volume loss appears to represent atelectasis. Mild central pulmonary vascular congestion. Few right upper lobe calcified granulomas. PLEURA: Small bilateral pleural effusions. No pneumothorax. HEART AND MEDIASTINUM: The cardiac silhouette is mildly prominent. The pulmonary arteries appear enlarged and suggestive of pulmonary hypertension. BONES AND SOFT TISSUES: Mild multilevel degenerative changes of the thoracic spine. Soft tissues are unremarkable. UPPER ABDOMEN: No free air under the diaphragm. IMPRESSION: Patchy airspace opacities in the left lower lobe may represent pneumonia in the proper clinical setting. No prior images available for comparison. Recommend follow-up chest radiograph in 4-6 weeks. Bilateral central pulmonary vascular congestion. Signed by: Dr. Brooklyn Ta M.D. on 08/07/2018 4:42 PM
[2018-08-07] MEDS ORDERED: AZITHROMYCIN 500MG/NS 250 ML 250 ML IV ONE (18:45)
[2018-08-07] MEDS ORDERED: CEFTRIAXONE SOD 1 GM VIAL IM NR (18:45)
[2018-08-07 19:10] VITALS: BP 148/70
== END 2018-08-07 19:16 | disposition left against medical advice (07) ==
LOC: FSED 15:13
DX: R06.00 Dyspnea, unspecified (principal); R05 Cough; J15.9 Unspecified bacterial pneumonia; I10 Essential (primary) hypertension; I50.9 Heart failure, unspecified; I48.91 Unspecified atrial fibrillation; E05.90 Thyrotoxicosis, unspecified without thyrotoxic crisis or storm; Z86.718 Personal history of other venous thrombosis and embolism
CPT/HCPCS: 71046; 80048; 80053; 80076; 83880; 84484; 85025; 85379; 85610; 87040; 87071; 87205; 87400; 93005; 96374; 96375; 99283; J0456; J1030

== ENCOUNTER → 2022-01-30 | Outpatient (CLI) | payer MEDICARE | LOC: DX 10:24 | PROVIDERS: ATTEND Family Medicine | DX: M85.88 Other specified disorders of bone density and structure, other site (principal) | CPT/HCPCS: 77080 ==

== ENCOUNTER 2024-11-15 12:02 | Emergency (ER) | payer MEDICARE ==
[2024-11-15] MEDS ORDERED: LEVOTHYROXINE50 MCG PO (13:17)
[2024-11-15] MEDS ORDERED: POTASSIUM CHLO20 ME1 PO (13:17)
[2024-11-15] MEDS ORDERED: METOLAZONE5 MG PO (13:17)
[2024-11-15] MEDS ORDERED: TRAZODONE HCL50 MG PO (13:17)
[2024-11-15] MEDS ORDERED: FARXIGA10 MG (13:17)
[2024-11-15] MEDS ORDERED: SPIRONOLACTONE25 MG PO (13:17)
[2024-11-15] MEDS ORDERED: WARFARIN SODIUM5 MG PO (13:17)
[2024-11-15] MEDS ORDERED: COREG12.5 MG PO (13:17)
[2024-11-15] MEDS ORDERED: BUMETANIDE2 MG PO (13:17)
== END 2024-11-15 12:50 | disposition left against medical advice (07) ==
LOC: ER 12:50
DX: R60.9 Edema, unspecified (principal)

== ENCOUNTER 2024-11-15 12:58 | Emergency (ER) | payer MEDICARE ==
[~2024-11-15] VITALS: Ht 162.6 cm; Wt 77.3 kg
[2024-11-15] MEDS ORDERED: FARXIGA10 MG (13:17)
[2024-11-15] MEDS ORDERED: COREG12.5 MG PO (13:17)
[2024-11-15] MEDS ORDERED: METOLAZONE5 MG PO (13:17)
[2024-11-15] MEDS ORDERED: WARFARIN SODIUM5 MG PO (13:17)
[2024-11-15] MEDS ORDERED: SPIRONOLACTONE25 MG PO (13:17)
[2024-11-15] MEDS ORDERED: LEVOTHYROXINE50 MCG PO (13:17)
[2024-11-15] MEDS ORDERED: BUMETANIDE2 MG PO (13:17)
[2024-11-15] MEDS ORDERED: TRAZODONE HCL50 MG PO (13:17)
[2024-11-15] MEDS ORDERED: POTASSIUM CHLO20 ME1 PO (13:17)
[2024-11-15 15:57] VITALS: PULSE 74; RESP 16; TEMP 97.3; O2SAT 99
[2024-11-15] MEDS ORDERED: POTASSIUM CHLORIDE 20 MEQ TAB CR PO ONE (16:08)
[2024-11-15] MEDS: POTASSIUM CHLORIDE 20 MEQ TAB CR PO STA (16:27)
== END 2024-11-15 16:15 | disposition home or self-care (01) ==
LOC: FSED 13:01
DX: R60.9 Edema, unspecified (principal); I48.91 Unspecified atrial fibrillation; E88.09 Other disorders of plasma-protein metabolism, not elsewhere classified; E87.6 Hypokalemia; I10 Essential (primary) hypertension; I50.9 Heart failure, unspecified; E78.5 Hyperlipidemia, unspecified; N28.9 Disorder of kidney and ureter, unspecified; R94.31 Abnormal electrocardiogram [ECG] [EKG]; Z95.810 Presence of automatic (implantable) cardiac defibrillator
CPT/HCPCS: 71046; 80053; 80076; 81003; 82553; 83880; 84484; 85025; 93005; 93970; 99284